=== PATIENT | female | born 1965 | race Caucasian/White ===

== ENCOUNTER → 2016-05-24 | Outpatient (CLI) | payer BC ==
--- NOTE | 2016-06-04 20:05 | Diagnostic Imaging Report ---
EXAM: Digital mammogram, bilateral screening. The current study was also evaluated with a Computer Aided Detection (CAD) system. COMPARISON: This study was compared to the prior exams of 12/28/13 and 12/14/12. At this time, there are no current complaints. FINDINGS: There are scattered fibroglandular densities in both breasts which could obscure a lesion. Overall, there does not appear to have been any significant change when compared to the prior exam. No primary or secondary sign of malignancy is noted. IMPRESSION: There is no radiographic evidence for malignancy. ACR BI-RADS Category 1: Negative. Result letter will be mailed to the patient. Note: At least 10% of breast cancer is not imaged by mammography. Dictated by: Dictated on workstation # [id number]
== END ==
LOC: RAD 15:32
PROVIDERS: ATTEND Nurse Practitioner
DX: Z12.31 Encounter for screening mammogram for malignant neoplasm of breast (principal)
CPT/HCPCS: 77067

== ENCOUNTER 2016-10-05 11:39 | Emergency (ER) | payer BC ==
[~2016-10-05] VITALS: Ht 162.6 cm; Wt 108.0 kg
[2016-10-05 13:33] VITALS: BP 0/0
[2016-10-06] MEDS ORDERED: HYDR-3820 (10:17)
[2016-10-06] MEDS ORDERED: ESCI20TA (10:17)
[2016-10-06] MEDS ORDERED: ATEN50TA (10:17)
[2016-10-06] MEDS ORDERED: PANT40TA2 (10:17)
== END 2016-10-05 13:33 | disposition left against medical advice (07) ==
LOC: EDUNIT# 11:39 → ER 11:40
DX: R10.31 Right lower quadrant pain (principal)
CPT/HCPCS: 99281

== ENCOUNTER 2016-10-06 09:50 | Emergency (ER) | payer BC ==
[~2016-10-06] VITALS: Ht 165.1 cm; Wt 107.0 kg
[2016-10-06] MEDS ORDERED: ESCI20TA (10:17)
[2016-10-06] MEDS ORDERED: PANT40TA2 (10:17)
[2016-10-06] MEDS ORDERED: ATEN50TA (10:17)
[2016-10-06] MEDS ORDERED: HYDR-3820 (10:17)
[2016-10-06] MEDS ORDERED: NS IV 1000 ML 1,000 ML IV ONE ×2 (10:21→12:06)
[2016-10-06] MEDS ORDERED: fentaNYL INJECTION 100 MCG/2 ML AMP IVP STA ×2 (10:28→12:06)
--- NOTE | 2016-10-06 10:34 | ED Abdominal Pain ---
General Chief Complaint: Abdominal/GI Problems Stated Complaint: R SIDE ABD PAIN Nursing Triage Note: ARRIVED VIA AMB TO ROOM 05. COMPLAINS OF RLQ PAIN STARTING FRIDAY. SEEN AT [facility] YESTERDAY ET SENT TO ER. LWBS DUE TO BUSY ER. PT STATES SHE WAS CONSTIPATED YESTERDAY BUT HAS SINCE HAD A BM AND CONTINUES TO HAVE RLQ PAIN. Sepsis Screen: No Definite Risk Source of Information: Patient Exam Limitations: No Limitations History of Present Illness Time Seen By Provider: 10:19 Initial Comments Here with report of right lower quadrant abdominal pain that has been going on for 2 days. She was seen at the [facility] yesterday and sent here for evaluation. She apparently left prior to being seen due to stay time or because of his busy here. She did have a bowel movement last night but continues to have the pain and states that it's worsening. States that it's worse with food and she has not eaten since yesterday. Last by mouth intake was a little bit of coke at 3 a.m. Denies dysuria or diarrhea. Timing/Duration: 2-3 Days Severity/Quality: Moderate, Severe, Aching Location: RLQ Radiation: No Radiation Activities at Onset: None Modifying Factors: Worsens With Eating, Worsens With Movement Associated Symptoms: No Fever/Chills, No Nausea/Vomiting, No Shortness of Air Allergies and Home Medications Allergies Coded Allergies: No Known Drug Allergies (Unverified , 10/06/16) Home Medications Atenolol 50 Mg Tablet, (Reported) Escitalopram Oxalate 20 Mg Tablet, (Reported) Hydrocodone/Acetaminophen 1 Each Tablet, (Reported) Pantoprazole Sodium 40 Mg Tablet., (Reported) Review of Systems Constitutional: see HPI, No chills, No fever EENTM: No Symptoms Reported Respiratory: No Symptoms Reported Cardiovascular: No Symptoms Reported Gastrointestinal: See HPI, Abdominal Pain, Denies Diarrhea, Denies Nausea, Denies Vomiting Genitourinary: No Symptoms Reported Musculoskeletal: no symptoms reported Skin: no symptoms reported Psychiatric/Neurological: No Symptoms Reported All Other Systems Reviewed Negative Unless Noted: Yes Past Uknitqn-Dllwcj-Bazuco Hx Patient Social History Alcohol Use: Denies Use Recreational Drug Use: No Smoking Status: Current Everyday Smoker Type Used: Cigarettes Recent Foreign Travel: No Contact w/Someone Who Travel: No Recent Infectious Disease Expo: No Surgeries HX Surgeries: Yes Surgeries: Gallbladder, Orthopedic Respiratory Hx Respiratory Disorders: No Cardiovascular Hx Cardiac Disorders: No Neurological Hx Neurological Disorders: No Reproductive System SYSTEMS ENGINEER History: Menopausal Genitourinary Hx Genitourinary Disorders: No Gastrointestinal Hx Gastrointestinal Disorders: Yes Gastrointestinal Disorders: Gastroesophageal Reflux Musculoskeletal Hx Musculoskeletal Disorders: No Endocrine Hx Endocrine Disorders: No Psychosocial Hx Psychiatric Problems: Yes Behavioral Health Disorders: Depression Reviewed Nursing Assessment Reviewed/Agree w Nursing PMH: No Family Medical History Significant Family History: No Pertinent Family Hx Physical Exam Vital Signs VS - Last 72 Hours, by Label 10/06/16 10:00 Temp 96.7 Pulse 72 Resp 18 B/P (MAP) 146/84 Pulse Ox 98 O2 Delivery Room Air Capillary Refill : Less Than 3 Seconds General Appearance: WD/WN, mild distress (abdominal pain) HEENT: PERRL/EOMI, pharynx normal Neck: full range of motion, supple Respiratory: lungs clear, normal breath sounds Cardiovascular: regular rate, rhythm, no murmur Peripheral Pulses: 2+ Dorsalis Pedis (R), 2+ Left Dors-Pedis (L), 2+ Radial Pulses (R), 2+ Radial Pulses (L) Gastrointestinal: soft, No guarding, No rebound, tenderness (right lower quadrant) Extremities: non-tender, normal inspection Back: normal inspection, no CVA tenderness, no vertebral tenderness Neurologic/Psychiatric: alert, oriented x 3 Skin: normal color, warm/dry Progress/Results/Core Measures Results/Orders Lab Results Laboratory Tests Test 10/06/16 10:24 10/06/16 10:28 Range/Units Urine Color YELLOW Urine Clarity SLIGHTLY CLOUDY Urine pH 5 5-9 Urine Specific [place] 1.020 1.016-1.022 Urine Protein 2+ H NEGATIVE Urine Glucose (UA) NEGATIVE NEGATIVE Urine Ketones 3+ H NEGATIVE Urine Nitrite NEGATIVE NEGATIVE Urine Bilirubin NEGATIVE NEGATIVE Urine Urobilinogen 1 NORMAL MG/DL Urine Leukocyte Esterase NEGATIVE NEGATIVE Urine RBC (Auto) NEGATIVE NEGATIVE Urine RBC NONE /HPF Urine WBC RARE /HPF Urine Squamous Epithelial Cells TNTC H /HPF Urine Crystals PRESENT H /LPF Urine Amorphous Sediment LARGE AUDIE URATES H /LPF Urine Bacteria NEGATIVE /HPF Urine Casts NONE /LPF Urine Mucus LARGE H /LPF Urine Culture Indicated NO White Blood Count 5.7 4.3-11.0 10^3/uL Red Blood Count 5.34 4.35-5.85 10^6/uL Hemoglobin 14.4 11.5-16.0 G/DL Hematocrit 45 35-52 % Mean Corpuscular Volume 84 80-99 FL Mean Corpuscular Hemoglobin 27 25-34 PG Mean Corpuscular Hemoglobin Concent 32 32-36 G/DL Red Cell Distribution Width 12.6 10.0-14.5 % Platelet Count 178 130-400 10^3/uL Mean Platelet Volume 10.5 H 7.4-10.4 FL Neutrophils (%) (Auto) 66 42-75 % Lymphocytes (%) (Auto) 28 12-44 % Monocytes (%) (Auto) 5 0-12 % Eosinophils (%) (Auto) 1 0-10 % Basophils (%) (Auto) 0 0-10 % Neutrophils # (Auto) 3.7 1.8-7.8 X 10^3 Lymphocytes # (Auto) 1.6 1.0-4.0 X 10^3 Monocytes # (Auto) 0.3 0.0-1.0 X 10^3 Eosinophils # (Auto) 0.1 0.0-0.3 10^3/uL Basophils # (Auto) 0.0 0.0-0.1 10^3/uL Sodium Level 141 135-145 MMOL/L Potassium Level 3.8 3.6-5.0 MMOL/L Chloride Level 108 H 98-107 MMOL/L Carbon Dioxide Level 23 21-32 MMOL/L Anion Gap 10 5-14 MMOL/L Blood Urea Nitrogen 19 H 7-18 MG/DL Creatinine 0.76 0.60-1.30 MG/DL Estimat Glomerular Filtration Rate > 60 BUN/Creatinine Ratio 25 Glucose Level 101 70-105 MG/DL Calcium Level 9.4 8.5-10.1 MG/DL Total Bilirubin 0.6 0.1-1.0 MG/DL Aspartate Amino Transf (AST/SGOT) 23 5-34 U/L Alanine Aminotransferase (ALT/SGPT) 27 0-55 U/L Alkaline Phosphatase 75 40-136 U/L Total Protein 7.9 6.4-8.2 GM/DL Albumin 4.1 3.2-4.5 GM/DL My Orders Orders - RAINA DAVID MD Cbc With Automated Diff (10/06/16 10:21) Comprehensive Metabolic Panel (10/06/16 10:21) Ua Culture If Indicated (10/06/16 10:21) Saline Lock/Iv-Start (10/06/16 10:21) Ns Iv 1000 Ml (Sodium Chloride 0.9%) (10/06/16 10:21) Urine Bedside (10/06/16 10:28) Fentanyl Injection (Sublimaze Injection (10/06/16 10:28) Ct Abd/Pelv W (Appendicitis) (10/06/16 10:59) Iohexol Injection (Omnipaque 350 Mg/Ml 1 (10/06/16 11:15) Ns (Ivpb) (Sodium Chloride 0.9% Ivpb Bag (10/06/16 11:15) Fentanyl Injection (Sublimaze Injection (10/06/16 12:06) Ns Iv 1000 Ml (Sodium Chloride 0.9%) (10/06/16 12:06) Medications Given in ED Current Medications Medications Dose Ordered Sig/Deepali Route Start Time Stop Time Status Last Admin Dose Admin Iohexol 100 ml ONCE ONCE IV 10/06/16 11:15 10/06/16 11:17 DC 10/06/16 11:18 100 ML Sodium Chloride 100 ml ONCE ONCE IV 10/06/16 11:15 10/06/16 11:17 DC 10/06/16 11:18 80 ML Sodium Chloride 1,000 ml @ 0 mls/hr Q0M ONCE IV 10/06/16 10:21 10/06/16 10:22 DC 10/06/16 10:34 1,000 MLS/HR Sodium Chloride 1,000 ml @ 0 mls/hr Q0M ONCE IV 10/06/16 12:06 10/06/16 12:08 DC 10/06/16 12:20 1,000 MLS/HR Vital Signs/I&O Vital Sign - Last 12Hours 10/06/16 10:00 Temp 96.7 Pulse 72 Resp 18 B/P (MAP) 146/84 Pulse Ox 98 O2 Delivery Room Air Blood Pressure Mean: 104 Progress Note : Progress Note Seen and evaluated. IV, labs, UA, normal saline [address] abdomen and pelvis pending UA results. CT abdomen and pelvis with contrast ordered rule out appendicitis. Monitor patient. Patient did receive fentanyl 75 g IV which did help out her pain. 1205: Repeat normal saline 1 L bolus due to 3+ ketones in the urine. Patient now reports that she had constipation earlier and she attributes that to long-term narcotic use. She did stop her narcotics about 3 days ago and took some laxatives. She has now had 3 bowel movements today. She does report abdominal cramping. I do believe this may be related to the laxative use and to narcotic withdrawal. This was discussed with the patient. CT scan was negative except for question of mild small bowel enteritis which is likely related to the laxative and narcotic withdrawal. Patient has no infectious symptoms for findings otherwise. All of this was discussed with the patient who agreed. Repeat 75 g of fentanyl IV for abdominal cramping. After repeat bolus of fluid, discharge home with return precautions. Patient verbalize understanding instructions and agreement with plan. Diagnostic Imaging Diagonstic Imaging: CT Plain Films/CT/US/NM/MRI: abdomen, pelvis Comments NAME: LILIANA ALMENDAREZ [facility] REC#: [id number] PT STATUS: REG ER : 1965 PHYSICIAN: RAINA DAVID MD ADMIT DATE: 10/06/16/ER Draft Date of Exam:10/06/16 CT ABD/PELV W (APPENDICITIS) PROCEDURE: CT abdomen and pelvis with contrast, rule out appendicitis. TECHNIQUE: Multiple contiguous axial images were obtained through the abdomen and pelvis after the administration of intravenous contrast. INDICATION: Right lower quadrant pain There are no previous studies available for comparison. Reportedly there is clinical concern regarding an acute appendicitis. On this study, the appendix was visualized and is not abnormally thickened. There is no distortion of periappendiceal fat to suggest an acute inflammatory process either. There are several fluid-filled segments of small bowel present. These are nonspecific but could be related to a mild ileus perhaps secondary to enteritis. Clinical followup is recommended. There are a few diverticula in the sigmoid and descending colon but there is no evidence for an acute diverticulitis. The urinary bladder and uterus are grossly unremarkable. The endometrial lining of the uterus is slightly thickened measuring 9 MM (normal 5 mm or less). Correlation with the patients menstrual cycle would be recommended. The gallbladder is surgically absent. The liver and spleen are prominent but not definitely enlarged. There is no focal mass involving either liver or the spleen. The pancreas, the adrenals, the kidneys, the aorta and inferior vena cava show no sign of an acute abnormality. The stomach is not well-distended and consequently difficult to assess. The lung bases are clear. The bone windows show no sign of a fracture or of a destructive lesion. IMPRESSION: 1. There is no evidence for acute appendicitis. 2. The fluid-filled segments of small bowel are nonspecific but could be secondary to a mild ileus perhaps related to enteritis. Clinical followup is recommended. 3. The endometrial lining of the uterus is slightly thickened. Correlation with the patients menstrual cycle would be recommended. Departure Impression Impression: Primary Impression: Abdominal pain, acute, right lower quadrant Disposition: HOME, SELF-CARE Condition: Improved Decision to Admit Reason: Admit from ER (General) Departure-Patient Inst. Decision time for Depature: 12:05 Referrals: [facility] (PCP) Primary Care Physician ROEL LI MD (Family) Primary Care Physician Patient Instructions: Acute Abdomen (Belly Pain), Adult (DC), Constipation, Adult (DC) Add. Discharge Instructions: All discharge instructions reviewed with patient and/or family. Voiced understanding. Continue medications as directed. Clear liquid diet for 24 hours and then advance as tolerated. Drink plenty of fluids. Follow-up with your Dr. in a few days for recheck. Return for worse pain, fever, vomiting, weakness, breathing problems or other concerns as needed. RAINA DAVID MD Oct 06, 2016 10:33
[2016-10-06 10:38] LABS: BILIRUBIN,URINE NEGATIVE (NEGATIVE); KETONES,URINE 3+ (NEGATIVE); LEUKOCYTE ESTERASE ,URINE NEGATIVE (NEGATIVE); NITRITE,URINE NEGATIVE (NEGATIVE); PH,URINE 5 (5-9); PROTEIN,URINE 2+ (NEGATIVE); UROBILINOGEN,URINE 1 MG/DL (NORMAL)
[2016-10-06 10:41] LABS: BASOPHILS % (AUTO) 0 % (0-10); EOSINOPHILS # (AUTO) 0.1 10^3/uL (0.0-0.3); EOSINOPHILS % (AUTO) 1 % (0-10); LYMPHOCYTES # (AUTO) 1.6 X 10^3 (1.0-4.0); LYMPHOCYTES % (AUTO) 28 % (12-44); MEAN CORPUSCULAR HEMOGLOBIN 27 PG (25-34); MEAN CORPUSCULAR HGB CONC 32 G/DL (32-36); MEAN CORPUSCULAR VOLUME 84 FL (80-99); MEAN PLATELET VOLUME 10.5 FL (7.4-10.4); MONOCYTES # (AUTO) 0.3 X 10^3 (0.0-1.0); MONOCYTES % (AUTO) 5 % (0-12); NEUTROPHILS # (AUTO) 3.7 X 10^3 (1.8-7.8); NEUTROPHILS % (AUTO) 66 % (42-75); PLATELET COUNT 178 10^3/uL (130-400); RED BLOOD COUNT 5.34 10^6/uL (4.35-5.85); RED CELL DISTRIBUTION WIDTH 12.6 % (10.0-14.5); WHITE BLOOD COUNT 5.7 10^3/uL (4.3-11.0)
[2016-10-06 10:51] LABS: SQUAMOUS EPITHELIAL CELL,UR TNTC /HPF; WBC,URINE RARE /HPF
[2016-10-06 10:57] LABS: ALANINE AMINOTRANSFERASE 27 U/L (0-55); ALBUMIN 4.1 GM/DL (3.2-4.5); ANION GAP 10 MMOL/L (5-14); ASPARTATE AMINO TRANSFERASE 23 U/L (5-34); BILIRUBIN,TOTAL 0.6 MG/DL (0.1-1.0); BLOOD UREA NITROGEN 19 MG/DL (7-18); BUN/CREATININE RATIO 25; CALCIUM 9.4 MG/DL (8.5-10.1); CARBON DIOXIDE 23 MMOL/L (21-32); CHLORIDE 108 MMOL/L (98-107); CREATININE SERUM 0.76 MG/DL (0.60-1.30); GFR ESTIMATED > 60; GLUCOSE 101 MG/DL (70-105); POTASSIUM 3.8 MMOL/L (3.6-5.0); SODIUM 141 MMOL/L (135-145); TOTAL PROTEIN 7.9 GM/DL (6.4-8.2)
[2016-10-06] MEDS ORDERED: IOHEXOL 350 MG/ML 100 ML (OMNIPAQUE 350) VIAL IV ONE (11:15)
[2016-10-06] MEDS ORDERED: NS 100 ML (IVPB) BAG IV ONE (11:15)
--- NOTE | 2016-10-06 11:47 | Diagnostic Imaging Report ---
PROCEDURE: CT abdomen and pelvis with contrast, rule out appendicitis. TECHNIQUE: Multiple contiguous axial images were obtained through the abdomen and pelvis after the administration of intravenous contrast. INDICATION: Right lower quadrant pain There are no previous studies available for comparison. Reportedly there is clinical concern regarding an acute appendicitis. On this study, the appendix was visualized and is not abnormally thickened. There is no distortion of periappendiceal fat to suggest an acute inflammatory process either. There are several fluid-filled segments of small bowel present. These are nonspecific but could be related to a mild ileus perhaps secondary to enteritis. Clinical followup is recommended. There are a few diverticula in the sigmoid and descending colon but there is no evidence for an acute diverticulitis. The urinary bladder and uterus are grossly unremarkable. The endometrial lining of the uterus is slightly thickened measuring 9 MM (normal 5 mm or less). Correlation with the patients menstrual cycle would be recommended. The gallbladder is surgically absent. The liver and spleen are prominent but not definitely enlarged. There is no focal mass involving either liver or the spleen. The pancreas, the adrenals, the kidneys, the aorta and inferior vena cava show no sign of an acute abnormality. The stomach is not well-distended and consequently difficult to assess. The lung bases are clear. The bone windows show no sign of a fracture or of a destructive lesion. IMPRESSION: 1. There is no evidence for acute appendicitis. 2. The fluid-filled segments of small bowel are nonspecific but could be secondary to a mild ileus perhaps related to enteritis. Clinical followup is recommended. 3. The endometrial lining of the uterus is slightly thickened. Correlation with the patients menstrual cycle would be recommended. Dictated by: Dictated on workstation # [id number]
[2016-10-06 13:20] VITALS: BP 122/78
== END 2016-10-06 13:20 | disposition home or self-care (01) ==
LOC: EDUNIT# 09:50 → ER 09:51
DX: R10.31 Right lower quadrant pain (principal); F32.9 Major depressive disorder, single episode, unspecified; K21.9 Gastro-esophageal reflux disease without esophagitis; F17.210 Nicotine dependence, cigarettes, uncomplicated; Z90.49 Acquired absence of other specified parts of digestive tract; Z98.890 Other specified postprocedural states
CPT/HCPCS: 36415; 74177; 80053; 81000; 84703; 85025; 96361; 96374; 96376

== ENCOUNTER → 2016-10-25 | Outpatient (CLI) | payer BC ==
[~2016-10-25] MED LIST: ATEN50TA; ESCI20TA; HYDR-3820; PANT40TA2
--- NOTE | 2016-10-25 14:38 | Diagnostic Imaging Report ---
PROCEDURE: MRI lumbar spine. TECHNIQUE: Multiplanar, multisequence MRI of the lumbar spine was performed without contrast. INDICATION: Low back pain extending into right leg. FINDINGS: Good alignment of the vertebral bodies. Body heights are well maintained throughout. No abnormal marrow signal demonstrated. The conus medullaris and cauda equina appear normal. L1-L2: There is settling of the disc space with desiccation. There is small disc herniation paramedian on the left causing [id number] encroachment upon the lateral recess and nerve root sleeve. L2-L3. Disc shows normal contour. No facet or ligamentous hypertrophy. L3-L4: There is normal contour of the disc. Mild desiccation noted. Mild posterior facet and ligamentous hypertrophy. L4-L5: There is desiccation of the disc with settling. There is broad-based disc bulge with associated hypertrophic endplate change. This is causing [id number] encroachment upon the neural foramina bilaterally. There is no central canal stenosis. Moderate posterior facet and ligamentous hypertrophy. L5-S1: Disc shows normal contour. Mild posterior facet and ligamentous hypertrophy with no significant encroachment demonstrated. The surrounding soft tissues appear normal. IMPRESSION: 1. Degenerative disc and facet disease with focal small disc herniation paramedian on the left at L1-L2. 2. Degenerative disc disease with broad-based disc bulge and posterior facet and ligamentous hypertrophy at L3-L4 and L4-L5 causing [id number] encroachment. There is no central canal stenosis. Dictated by: Dictated on workstation # [id number]
== END ==
LOC: RAD 13:46
PROVIDERS: ATTEND Orthopaedic Surgery
DX: M51.36 Other intervertebral disc degeneration, lumbar region (principal)
CPT/HCPCS: 72148